=== PATIENT | male | born 1940 | race Caucasian/White ===

== ENCOUNTER → 2021-10-23 | Outpatient (CLI) | payer MEDICARE | END | disposition home or self-care (01) | LOC: PLD 07:56 → LAB SHORT 07:56 | DX: L57.0 Actinic keratosis (principal) | CPT/HCPCS: 88305 ==

== ENCOUNTER → 2022-02-04 | Outpatient (CLI) | payer MEDICARE | END | disposition home or self-care (01) | LOC: LAB SHORT 13:18 → PLD 13:18 | DX: L57.0 Actinic keratosis (principal); L11.9 Acantholytic disorder, unspecified; L57.8 Other skin changes due to chronic exposure to nonionizing radiation | CPT/HCPCS: 88305 ==

== ENCOUNTER 2022-02-23 15:39 | Emergency (ER) | payer MEDICARE ==
[~2022-02-23] VITALS: Ht 165.1 cm; Wt 69.0 kg
[2022-02-23 16:43] LABS: BASOPHILS ABSOLUTE AUTO 0.02 K/mm3 (0.00-0.23); BASOPHILS PERCENT AUTO 0 % (0-2); EOSINOPHILS ABSOLUTE AUTO 0.07 K/mm3 (0.00-0.68); EOSINOPHILS PERCENT AUTO 1 % (0-6); Hemoglobin 13.3 g/dL (13.5-17.5); IMMATURE GRAN ABSOLUTE AUTO 0.01 K/mm3 (0.00-0.10); IMMATURE GRAN PERCENT AUTO 0 % (0-1); LYMPHOCYTES ABSOLUTE AUTO 1.85 K/mm3 (0.84-5.20); LYMPHOCYTES PERCENT AUTO 26 % (21-46); MONOCYTES ABSOLUTE AUTO 0.57 K/mm3 (0.16-1.47); MONOCYTES PERCENT AUTO 8 % (4-13); Mean Corpuscular HGB 30.9 pg (26.0-34.0); Mean Corpuscular HGB Conc 34.1 g/dL (31.5-36.5); Mean Corpuscular Volume 91 fL (80-100); NEUTROPHILS ABSOLUTE AUTO 4.69 K/mm3 (1.96-9.15); NEUTROPHILS PERCENT AUTO 65 % (41-73); Platelet Count 232 K/mm3 (150-400); RDW Coefficient Variation 12.7 % (11.7-14.2); RDW Standard Deviation 42.5 fL (35.1-46.3); Red Blood Cell Count 4.31 M/mm3 (4.30-5.90); White Blood Cell Count 7.21 K/mm3 (4.00-11.30)
[2022-02-23 17:07] LABS: Albumin, Blood 3.6 g/dL (3.4-5.0); Albumin/Globulin Ratio 1.2 (0.8-1.8); Bilirubin, Total 0.6 mg/dL (0.1-1.0); Bun/Creatinine Ratio 13.9 (12.0-20.0); Calcium, Blood 9.1 mg/dL (8.5-10.1); Creatinine, Blood 1.01 mg/dL (0.60-1.20); Total Protein, Blood 6.6 g/dL (6.4-8.2)
[2022-02-24] MEDS ORDERED: LORA.5 (13:21)
[2022-02-24] MEDS ORDERED: Seroquel Xr50 MG (13:21)
[2022-02-24] MEDS ORDERED: Ativan0.5 MG PO (13:31)
== END 2022-02-23 18:24 | disposition home or self-care (01) ==
LOC: ER 15:39
PROVIDERS: Student in an Organized Health Care Education/Training Program
DX: G30.9 Alzheimer's disease, unspecified (principal); F02.81 Dementia in other diseases classified elsewhere, unspecified severity, with behavioral disturbance
CPT/HCPCS: 80053; 85025

== ENCOUNTER 2022-02-24 13:01 | Emergency (ER) | payer MEDICARE ==
[~2022-02-24] VITALS: Ht 165.1 cm; Wt 68.0 kg
[2022-02-24] MEDS ORDERED: LORA.5 (13:21)
[2022-02-24] MEDS ORDERED: Seroquel Xr50 MG (13:21)
[2022-02-24] MEDS ORDERED: Ativan0.5 MG PO (13:31)
== END 2022-02-24 14:28 | disposition home or self-care (01) ==
LOC: ER 13:01
DX: F03.90 Unspecified dementia, unspecified severity, without behavioral disturbance, psychotic disturbance, mood disturbance, and anxiety (principal); Z79.899 Other long term (current) drug therapy
CPT/HCPCS: A9270

== ENCOUNTER 2022-02-24 18:17 | Inpatient (IN) | payer MEDICARE ==
[~2022-02-24] VITALS: Ht 165.1 cm; Wt 64.3 kg
[~2022-02-24 18:17] MED LIST: Ativan0.5 MG PO; LORA.5; QUET25 PO
[2022-02-26 10:17] LABS: Source, Urine Straight Cath
[2022-02-26 10:21] LABS: Appearance, Urine Clear (Clear); Bilirubin, Urine Neg (Neg); Blood, Urine 1+ (Neg); Color, Urine Yellow (P-Yellow); Glucose Qualitative, Urine Neg (Neg); Ketones, Urine 3+ (Neg); Leukocyte Esterase, Urine Neg (Neg); Nitrite, Urine Neg (Neg); Protein, Urine 1+ (Neg); Specific Gravity, Urine 1.025 (1.003-1.022); Urobilinogen, Urine NORM (Normal)
[2022-02-26 10:40] LABS: White Blood Cells, Urine 0-2 /hpf (0-5)
[2022-02-26 10:42] LABS: Bacteria Mod /hpf; Squamous Epithelial Cells Few /hpf (Few)
[2022-02-26 10:44] LABS: Hyaline Casts 0-2 /lpf (0-2); Mucus Light (0-Heavy)
[2022-02-26] MEDS ORDERED: MELATONIN 5 MG1 EACH PO (10:46)
[2022-02-26] MEDS ORDERED: ASPI81CH PO (10:47)
[2022-02-26] MEDS ORDERED: ATORVASTATIN CA80 M1 PO (10:48)
[2022-02-26] MEDS ORDERED: METF500 PO (10:50)
[2022-02-26] MEDS ORDERED: PANT40 PO (10:51)
[2022-02-26] MEDS ORDERED: QUETIAPINE FUMA25 MG PO (10:52)
[2022-02-26 11:10] LABS: U Amphetamine Screen Not Detected; U Barbituate Screen Not Detected; U Buprenorphine Screen Not Detected; U Cannabinoids Screen Not Detected; U Cocaine Screen Not Detected; U Methadone Screen Not Detected; U Methamphetamine Screen Not Detected; U Opiates Screen Not Detected; U Phencyclidine Screen Not Detected
[2022-02-26 11:11] LABS: U Benzodiazapine Screen DETECTED; U Oxycodone Screen Not Detected; U Propoxyphene Screen Not Detected
[2022-02-26 11:25] LABS: Base Excess Venous 3.5 mmol/L; Bicarbonate Venous 25.7 mmol/L (24.0-30.0); PCO2 Venous 48.4 mmHg (38-42); pH Blood Venous 7.38 (7.34-7.37)
[2022-02-26 11:27] LABS: BASOPHILS ABSOLUTE AUTO 0.02 K/mm3 (0.00-0.23); BASOPHILS PERCENT AUTO 0 % (0-2); EOSINOPHILS ABSOLUTE AUTO 0.13 K/mm3 (0.00-0.68); EOSINOPHILS PERCENT AUTO 2 % (0-6); Hematocrit 47.6 % (37.0-53.0); Hemoglobin 15.7 g/dL (13.5-17.5); IMMATURE GRAN PERCENT AUTO 0 % (0-1); LYMPHOCYTES ABSOLUTE AUTO 2.03 K/mm3 (0.84-5.20); LYMPHOCYTES PERCENT AUTO 31 % (21-46); MONOCYTES ABSOLUTE AUTO 0.62 K/mm3 (0.16-1.47); MONOCYTES PERCENT AUTO 9 % (4-13); Mean Corpuscular HGB 30.5 pg (26.0-34.0); Mean Corpuscular Volume 92 fL (80-100); Mean Platelet Volume 8.2 fL (9.1-12.4); NEUTROPHILS ABSOLUTE AUTO 3.79 K/mm3 (1.96-9.15); NEUTROPHILS PERCENT AUTO 58 % (41-73); Platelet Count 275 K/mm3 (150-400); RDW Coefficient Variation 12.9 % (11.7-14.2); RDW Standard Deviation 43.7 fL (35.1-46.3); Red Blood Cell Count 5.15 M/mm3 (4.30-5.90); White Blood Cell Count 6.59 K/mm3 (4.00-11.30)
[2022-02-26 12:00] LABS: Salicylate <1.7 mg/dL (2.8-20.0)
[2022-02-26 12:10] LABS: Alanine Aminotransfer (ALT/SGP 41 U/L (12-78); Albumin, Blood 4.3 g/dL (3.4-5.0); Albumin/Globulin Ratio 1.3 (0.8-1.8); Alk Phos 69 U/L (50-136); Anion Gap 10 mmol/L (6-16); Aspartate Aminotrans (AST/SGOT 68 U/L (12-37); Blood Urea Nitrogen 11 mg/dL (8-24); Bun/Creatinine Ratio 12.9 (12.0-20.0); CO2, Blood 27 mmol/L (21-32); Calcium, Blood 9.6 mg/dL (8.5-10.1); Chloride, Blood 105 mmol/L (98-108); Creatinine, Blood 0.85 mg/dL (0.60-1.20); Globulin, Blood 3.3 g/dL (2.2-4.0); Glomerular Filtration Rate 86 (60-); Glucose, Blood 174 mg/dL (70-99); Potassium, Blood 4.1 mmol/L (3.5-5.5); Sodium, Blood 142 mmol/L (136-145); Total Protein, Blood 7.6 g/dL (6.4-8.2)
[2022-02-26 12:26] LABS: Acetaminophen, Random <2.0 ug/mL (10.0-30.0)
--- NOTE | 2022-02-26 18:38 | NUR ---
PT ARRIVED TO ROOM 351 VIA GURNEY FROM ED. TRANSFERRED AND SETTLED IN TO BED. VERY CHATTY BUT CAN BE HARD TO UNDERSTAND AND SENTENCES NONSENSICAL. NOT FOLLOWING SIMPLE DIRECTIONS. CAMERA ON. WILL MONITER FOR BEHAVIORS AND AGGRESSION. LAUGHING AND SMILING RIGHT NOW.
[2022-02-26] MEDS ORDERED: LORA.5 PO (21:04)
[2022-02-26] MEDS ORDERED: NITR.4SL SL (21:05)
[2022-02-27 06:30] LABS: Albumin, Blood 3.6 g/dL (3.4-5.0); Bilirubin, Direct 0.2 mg/dL (0.0-0.3); Bilirubin, Indirect 0.6 mg/dL (0.1-0.7); Bilirubin, Total 0.8 mg/dL (0.1-1.0); Globulin, Blood 3.5 g/dL (2.2-4.0); Total Protein, Blood 7.1 g/dL (6.4-8.2)
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
--- NOTE | 2022-02-27 19:24 | NUR ---
SHIFT SUMMARY PT GIVEN SEROQUEL THIS MORNING IN ANTICIPATION OF POSSIBLE MRI BEING COMPLETED. ATE A SMALL AMOUNT OF BREAKFAST AND WAS ABLE TO SAYS HIS NAME AND BIRTHDAY. FELL ASLEEP AND SLEPT HARD TIL APPROX 1500 WHEN HE WOKE UP AND WAS TALKING NONSENSICAL AND FIDDLING WITH LINENS AND BRIEF. STARTED YELLING OUT APPROX 1650 AND ATTEMPTING TO CLIMB OOB. SERAQUEL OFFERED IN APPLESAUCE AND PT SPIT IT OUT. IM ZYPREXA GIVEN. APPROX 30 MINUTES LATER PT RIPPED SUBHASH VEST UP THE MIDDLE AND ATTEMPTED TO GET OOB YELLING AND HITTING AT STAFF ATTEMPTING TO HELP PT. SECURITY CALLED AND WRIST AND ANKLY RESTRAINTS APPLIED DUE TO KICKING AT STAFF WITH CARE WELL. HAS CALMED BUT OCC CONTINUES TO YELL OUT AND UNCOOPERATIVE WITH CARE.
--- NOTE | 2022-02-28 04:08 | NUR ---
SHIFT SUMMARY PATIENT HAD NO ACUTE CHANGES. ALERT TO SELF WITH NON-SENSICAL SPEECH. BEDREST. PIV REMAINS INTACT. 1/2 NS INFUSING AT 75 mL/HR. CBG 137. RESTRAINTS PER ORDER FOR AGITATION, KICKING, FALL RISK. VERBAL HALLUCINATIONS. IM ZYPREXA 10 MG GIVEN FOR AGITATION X ONE. DENIES PAIN, SOB, AND N/V. VSS/AFEBRILE. BED IN CALL LIGHT IN REACH. BED IN LOWEST POSITION AND ALARM ACTIVATED. WILL CONTINUE TO MONITOR UNTIL DAY SHIFT NURSE ASSUMES CARE.
[2022-02-28 05:26] LABS: BASOPHILS ABSOLUTE AUTO 0.02 K/mm3 (0.00-0.23); BASOPHILS PERCENT AUTO 0 % (0-2); EOSINOPHILS ABSOLUTE AUTO 0.18 K/mm3 (0.00-0.68); EOSINOPHILS PERCENT AUTO 3 % (0-6); Hematocrit 44.4 % (37.0-53.0); Hemoglobin 14.7 g/dL (13.5-17.5); IMMATURE GRAN ABSOLUTE AUTO 0.01 K/mm3 (0.00-0.10); IMMATURE GRAN PERCENT AUTO 0 % (0-1); LYMPHOCYTES ABSOLUTE AUTO 1.75 K/mm3 (0.84-5.20); LYMPHOCYTES PERCENT AUTO 28 % (21-46); MONOCYTES ABSOLUTE AUTO 0.53 K/mm3 (0.16-1.47); MONOCYTES PERCENT AUTO 9 % (4-13); Mean Corpuscular HGB 30.4 pg (26.0-34.0); Mean Corpuscular HGB Conc 33.1 g/dL (31.5-36.5); Mean Corpuscular Volume 92 fL (80-100); Mean Platelet Volume 8.2 fL (9.1-12.4); NEUTROPHILS ABSOLUTE AUTO 3.68 K/mm3 (1.96-9.15); NEUTROPHILS PERCENT AUTO 60 % (41-73); Platelet Count 256 K/mm3 (150-400); RDW Coefficient Variation 12.8 % (11.7-14.2); RDW Standard Deviation 43.2 fL (35.1-46.3); Red Blood Cell Count 4.83 M/mm3 (4.30-5.90); White Blood Cell Count 6.17 K/mm3 (4.00-11.30)
[2022-02-28 06:19] LABS: Albumin, Blood 3.4 g/dL (3.4-5.0); Anion Gap 6 mmol/L (6-16); Blood Urea Nitrogen 9 mg/dL (8-24); Bun/Creatinine Ratio 9.7 (12.0-20.0); CO2, Blood 28 mmol/L (21-32); Chloride, Blood 109 mmol/L (98-108); Creatinine, Blood 0.93 mg/dL (0.60-1.20); Glomerular Filtration Rate 81 (60-); Glucose, Blood 139 mg/dL (70-99); Magnesium, Blood 1.8 mg/dL (1.6-2.4); Phosphorus, Blood 3.1 mg/dL (2.5-4.9); Potassium, Blood 3.5 mmol/L (3.5-5.5); Sodium, Blood 143 mmol/L (136-145)
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
--- NOTE | 2022-03-01 04:24 | NUR ---
SHIFT SUMMARY PATIENT HAVING VISUAL AND AUDITORY HALLUCINATIONS T/O SHIFT. ALERT TO SELF AND BEDREST. COMBATIVE WITH CARE, REPOSITIONING, AND ATTENDS CHANGES. PATIENT TRYING TO KICK STAFF AND HIT EVEN IN RESTRAINTS. PIV REMAINS INTACT. 1/2 NS INFUSING AT 75mL/HR. DENIES PAIN, SOB, AND N/V. CALL LIGHT IN REACH. BED IN LOWEST POSITION. WILL CONTINUE TO MONITOR UNTIL DAY SHIFT NURSE ASSUMES CARE.
[2022-03-01 05:19] LABS: BASOPHILS ABSOLUTE AUTO 0.01 K/mm3 (0.00-0.23); BASOPHILS PERCENT AUTO 0 % (0-2); EOSINOPHILS ABSOLUTE AUTO 0.17 K/mm3 (0.00-0.68); EOSINOPHILS PERCENT AUTO 3 % (0-6); Hematocrit 45.5 % (37.0-53.0); Hemoglobin 15.3 g/dL (13.5-17.5); IMMATURE GRAN ABSOLUTE AUTO 0.01 K/mm3 (0.00-0.10); IMMATURE GRAN PERCENT AUTO 0 % (0-1); LYMPHOCYTES ABSOLUTE AUTO 1.82 K/mm3 (0.84-5.20); LYMPHOCYTES PERCENT AUTO 27 % (21-46); MONOCYTES ABSOLUTE AUTO 0.54 K/mm3 (0.16-1.47); MONOCYTES PERCENT AUTO 8 % (4-13); Mean Corpuscular HGB 30.6 pg (26.0-34.0); Mean Corpuscular HGB Conc 33.6 g/dL (31.5-36.5); Mean Corpuscular Volume 91 fL (80-100); Mean Platelet Volume 8.4 fL (9.1-12.4); NEUTROPHILS ABSOLUTE AUTO 4.29 K/mm3 (1.96-9.15); NEUTROPHILS PERCENT AUTO 63 % (41-73); Platelet Count 265 K/mm3 (150-400); RDW Coefficient Variation 12.6 % (11.7-14.2); RDW Standard Deviation 42.2 fL (35.1-46.3); White Blood Cell Count 6.84 K/mm3 (4.00-11.30)
[2022-03-01 05:52] LABS: Albumin, Blood 3.7 g/dL (3.4-5.0); Bilirubin, Total 0.7 mg/dL (0.1-1.0); Bun/Creatinine Ratio 9.8 (12.0-20.0); Calcium, Blood 9.3 mg/dL (8.5-10.1); Creatinine, Blood 0.82 mg/dL (0.60-1.20); Globulin, Blood 3.7 g/dL (2.2-4.0); Potassium, Blood 3.6 mmol/L (3.5-5.5); Total Protein, Blood 7.4 g/dL (6.4-8.2)
--- NOTE | 2022-03-01 17:10 | NUR ---
SHIFT SUMMARY MR ALEXANDRE IS ABLE TO TELL ME HIS NAME BUT HAS BEEN VERY CONFUSED TODAY, TALKING A LOT, RAMBLING CONVERSATION THAT MAKES LITTLE SENSE. SOFT RESTRAINTS ON WRISTS AND ANKLES, SUBHASH RESTRAINT IN PLACE PT IS CONSTANTLY MOVING, PULLING HIMSELF DOWN IN BED, WHEN RESTRAINTS ARE REMOVED FOR TURNS AND CARE PT IS REACHING OUT FOR STAFF AND PULLING AT IV LINE AND CLOTHING. FREQUENT CHANGES IN POSITION, SKIN CARE. INCONT OF URINE, ATTENDS IN PLACE. GIVEN MOM AND DUCOLOX SUPPOSITORY TODAY BUT NO BM YET. BLADDER SCAN DONE AT 128CC. IVF STOPPED, PT ATE ALL OF HIS LUNCH. HE TOOK MEDS CRUSHED IN ONE SPOON OF APPLESAUCE THIS AM. BED LOW, CALL LIGHT IN REACH, BED ALARM ON.
--- NOTE | 2022-03-01 18:32 | NUR ---
ADDENDUM PT BECAME AGGITATED, THREATENING STAFF VERBALLY AND TRYING TO PUNCH AND KICK STAFF. ZYPREXA GIVEN. PT AWAKE, CALMER, STILL MUMBLING PRETTY CONSISTANTLY BUT A LOT CALMER AT THE MOMENT. ORDER RECEIVED FROM DR AMOS TO CONTINUE RESTRAINTS.
--- NOTE | 2022-03-02 07:38 | NUR ---
PATIENT VERY AGITATION OVER THE FIRST FEW HOURS OF BRAKE DRUM MOLDER. DAY SHIFT RN GAVE 10MG DOSE OF ZYPREXA AT 1810. AT 2029, PATIENT STILL AGGRESSIVE WITH STAFF ATTEMPTING TO CHANGE HIS BRIEF AND PERFORM SAFETY ADL'S FOR THE PATIENT WHO IS IN 4 POINT SOFT RESTRAINTS, A SUBHASH VEST AND 4 BEDRAILS. HE WOULD NOT ALLOW BRIEF RELEASE OF RESTRAINTS OR ATTEMPTS AT REPOSITIONING OR EVEN TAKING WATER. PUTTY AND PATCH WORKER INFORMED, AND 2ND DOSE OF ZYPREXA GIVEN PER ORDER. AFTER A PPROXIMATELY AN HOUR, Addis BEGAN TO RELAX AND WAS WILLING TO TAKE HIS HS MEDS CRUSHED IN APPLESAUCE. THIS INCLUDED A NEW 200MG DOSE OF SEROQUEL. PATIENT DID CONTININUE TO RELAX, AND ACTUALLY ONLY FOUGHT STAFF WHEN HIS BRIEF WAS CHANGED AGAIN AT MIDNIGHT. BEGINNING AROUND THE 0200 CHECK, PATIENT WAS SLEEPING COMFORTABLY AND ONLY "GRUNTED" AT US WHEN WE COMPLETED OUR 0200 ROUND. THEN AT 0530 , THREE STAFF WENT IN TO CHANGE HIM, AND HE WAS BARELY AWAKE. HE HAD MANAGED TO GET THE COVERS TO ONE SIDE OF THE BED, AND FELT CHILLY. TEMP WNL WERE ALL OF HIS AM VITALS. HOWEVER, THIS RN HAD TO STERNAL RUB HIM QUITE VIGOROUSLY TO GET A SOUND OUT OF HIM, AND COLD WASHCLOTHES WOKE HIM ENOUGH TO MUMBLE "NO" AND SHAKE HIS HEAD. PUTTY AND PATCH WORKER INFORMED OF PATIENTS SOMNOLENCE, AND MEDICATIONS GIVEN LAST NIGHT. 2 LITERS 02 VIA NC PLACED FOR PATIENT SAFETY ALTHOUGH 02 SAT WAS 92% ON RA JUST A FEW MINUTES EARLIER. ONCOMING RN APPRAISED OF THE SITUATION, AND AGAIN, PATIENT TRIED TO SWAT AT THE DAMP WASH CLOTHES BEFORE FALLING BACK TO SLEEP.
--- NOTE | 2022-03-02 10:11 | NUR ---
MR ALEXANDRE IS HARD TO WAKE UP TODAY. HE RESPONDS WITH STERNAL RUB AND LOUD VOICE BY GROANING AND SLIGHTLY OPENING HIS EYES, BUT THAT'S THE MOST RESPONSE FROM HIM THROUGH THIS SHIFT. BP LOW, RECHECKED AND SBP 99. DR AMOS CALLED AND NOTIFIED THAT PT IS THIS DROWSY AND HARDLY RESPONSIVE.
--- NOTE | 2022-03-02 11:46 | NUR ---
PT STILL SLEEPY. 4 PT SOFT RESTRAINTS REMOVED PT SLEEPING. SUBHASH LEFT ON TO REASSESS ONCE PT WAKES UP PER DR PRETTY. PT HAS URINATED, INCONTINENT. BLADDER SCAN 145 POST VOID.
--- NOTE | 2022-03-02 17:32 | NUR ---
SHIFT SUMMARY MR ALEXANDRE WAS VERY SLEEPY AND DIFFICULT TO AROUSE WITHOUT PHYSICAL STIMULI EARLIER THIS SHIFT. 4 PT SOFT RESTRAINTS WERE REMOVED, LEFT WITH SUBHASH RESTRAINT AND 4 SIDE RAILS UP. HE HAD A BM AND WOKE DURING BEDBATH EARLY AFTERNOON, AT THIS TIME HE WAS SHOUTING OUT, TRYING TO HIT AND KICK STAFF, CURSING. HE DID CALM WITHOUT ANY ADDITIONAL MEDICATIONS OR RESTRAINTS AND SLEPT AGAIN THIS AFTERNOON. HIS CAME TO VISIT. NO C/O PAIN, NO RESP DISTRESS. BED LOW, CALL LIGHT IN REACH, BED ALARM ON.
--- NOTE | 2022-03-03 04:58 | NUR ---
PATIENT STARTED OUT QUIET HE HAD BEEN ALL DAY, THEN WOKE ABRUPTLY BEFORE MIDNIGHT AND STARTED YELLING FOR HIS EDMAR. HE BEGAN SWINGING HIS ARMS AT THIS RN AND INSISTING I RELEASE HIM FROM THE VEST. WHEN THE SITUATION WAS EXPLAINED, PATIENT GREW MORE AGITATED, AND STATED "I COULD HIT YOU ANYTIME" WHILE WE WERE CHANGING HIS BRIEF AND REPOSITIONING HIM. ORDER FOR WRIST RESTRAINTS TO BE REPLACED RECEIVED FROM NIGHT HOSPITALIST. PATIENT CALMED FOR A WHILE AFTER THAT AND AGREED TO TAKE HIS BEDTIME MEDS TO WHICH TYLENOL WAS ADDED FOR SOME MODERATE (FACES SCALE) LOW BACK PAIN. HE ATE A WHOLE JELLO AND PUDDING. HE SLEPT FOR 1-2 HOURS, THEN WOKE AGAIN AND STAYED AWAKE FIDGETING OR YELLING AND SWEARING FROM HIS ROOM
--- NOTE | 2022-03-03 15:10 | NUR ---
MR ALEXANDRE HAS BEEN PLEASANTLY CONFUSED THIS SHIFT. HE IS ABLE TO TELL ME HIS NAME, DOES MUMBLE AND TALK WHICH IS DIFFICULT TO UNDERSTAND CONFUSED CONVERSATION. HE HAS NOT YELLED, NOR KICKED OR HIT AT STAFF. HE IS STILL IN SUBHASH RESTRAINT WITH 4 SIDE RAILS UP HE DOES STILL TRY TO GET OUT OF BED AND CAN MOVE WELL EVEN WITH THESE IN PLACE. HE HAS HAD POOR ORAL INTAKE, ENCOURAGED TO DRINK AND LIKED THICKENED OJ. ENCOURAGED TO SIP REGULARLY. BLADDER SCAN 168MLS. BED LOW, CALL LIGHT IN REACH, BED ALARM ON
--- NOTE | 2022-03-03 18:01 | NUR ---
SHIFT SUMMARY MR ALEXANDRE HAS BEEN PLEASANTLY CONFUSED TODAY. NO YELLING, KICKING OR HITTING. HE DID GET A LITTLE AGGITATED AFTER HIS 'S VISIT, BUT WAS ABLE TO BE REDIRECTED AND CALMED. HE HAS BEEN IN THE SUBHASH RESTRAINT WITH 4 SIDE RAILS UP AND HAS TRIED TO GET OUT OF BED SEVERAL TIMES. ORAL INTAKE BEING ENCOURAGED. GRAPHITE PAN DRIER TENDER REPORTS THAT HE CHOKED DURING LUNCH AND TRAY WAS REMOVED, BUT HE HAS TAKEN THICKENED OJ SINCE THEN WITHOUT CHOKING. DIET CHANGED TO PUREE BY . BED LOW, CALL LIGHT IN REACH. BED ALARM ON
--- NOTE | 2022-03-04 05:05 | NUR ---
JUST AFTER EVENING BEGAN, PATIENT BED ALARM WENT OFF AND ADDIS WAS FOUND TO HAVE PULLED SUBHASH VEST OVER HIS HEAD, REMOVED HIS PAJAMA BOTTOMS AND HAD BOTH FEET ON THE FLOOR HOLDING ONTO THE BEDRAIL. Addis WAS VERY SHAKEY AND UNSTEADY ON HIS FEET. QUICKLY SEVERAL NURSES AND PRESIDENT [place] ASSISTED PATIENT BACK INTO BED, REPLACED THE SUHBASH VEST. MD WAS CONTACTED AND NEW ORDER FOR 4 RAILS, SUBHASH VEST AND REPLACEMENT OF BILATERAL SOFT WRIST RESTRAINTS. HOSPITALIST STATED HE COULD HAVE A 5MG DOSE OF IM ZYPREXA ONCE FOR SEVERE AGITATION AND ANXIETY. MEDICATION WAS GIVEN WITH MEDS WITH GOOD RESULT. PATIENT ACTUALLY SLEPT INTERMITTANTLY THROUGHOUT THE SHIFT. NO COMPLAINTS OF DISCOMFORT NOTED.
--- NOTE | 2022-03-04 18:30 | NUR ---
SHIFT SUMMARY PT HAS BEEN AGITATED AND INTERMITTENTLY AGGRESSIVE TODAY. HE IS IN TUFFCUFFS BECAUSE HE CAN RIP THE WOFT RESTRAINTS OFF BY TUGGING. HE IS IN 4 POINTS BECAUSE HWEN HE NEEDS TO BE CHANGES HHE KICKS STAFF AND SQUEEZED THIGH TOGETHER TO PREVENT CHANGING. CONDOM CATH IN PLACE TO PREVENT SKIN BREAKDOWN AND AVOID STAFF INJURY. PT EATS MEALS WELL, BUT CAN BE NON COMPLIANT WITH ORAL MEDICATIONS. WAS UPDATED BY RN. BED IN LOWEST POSITIONS, RESTRAINTS CHECKED.
--- NOTE | 2022-03-05 06:36 | NUR ---
SHIFT SUMMARY PATIENT ALERT AND ORIENTED TO SELF. REMAINS IN RESTRAINS DUE TO PATIENT COMBATIVENESS. NO ACUTE ISSUES NOTED OVERNIGHT. CALL LIGHT WITHIN REACH. REPORT GIVEN TO ONCOMING RN.
--- NOTE | 2022-03-05 15:47 | NUR ---
SHIFT SUMMARY PATIENT HAS SLEPT MOST OF THE MORNING. PATIENT HAS BEEN OFF AND ON AGITATED AFTER 1200. GIVEN PRN SERAQUIL. PATIENT HAS BEEN COMPLIANT WITH BRIEF CHANGES IN THE MORNING WHILE CALM. PATIENT IS IN 4 POINT RESTRAINTS DUE TO SAFETY FOR STAFF AND LINES. PATIENT HAS BEEN COMPLIANT WITH MEDICATIONS CRUSHED IN APPLESAUCE. RESTRAINTS AND COMFORT CHECKED Q2. BED IN LOCKED AND LOWEST POSITION. CALL LIGHT IN PLACE. WILL MONITOR UNTIL SHIFT CHANGE.
--- NOTE | 2022-03-06 05:22 | NUR ---
CHIEF OPERATOR LOCK TENDER SUMMARY ADMITTED FOR AGGRESSION AND THREATENING OF OTHERS. PT IS A DNR. HE IS FROM [facility]. NO CURRENT DC PLAN. HE WAS PLEASANTLY CONFUSED AT THE START OF SHIFT, BECOMING AGITATED THIS MORNING. PT HAS BEEN RESTRAINED THROUGHOUT THE SHIFT WITH 4 EXTREMITIES, SUBHASH, AND 4 RAILS DUE TO CONFUSION AND STAFF/PATIENT SAFETY. HE BEGAN TO CUSS AT STAFF WITH A HARSH TONE AND PULL ON RESTRAINTS SO WAS MEDICATED WITH 10MG IM ZYPREXA THIS AM - CURRENTLY SLEEPING. HE REQUIRES 2P CARE.
--- NOTE | 2022-03-06 17:01 | NUR ---
SHIFT SUMMARY PATIENT IS ALERT AND ORIENTATED TO SELF. PATIENT HAS BEEN PLEASENT THIS SHIFT. PATIENT HAS BEEN IN RESTRAINTS FOR SAFETY TO STAFF AND SELF. PATIENTS VISITED FOR AWHILE. PATIENTS MEDICATIONS WERE LATE DUE TO PATIENT SLEEPING MOST OF MORNING. NO ACUTE EVENTS THIS SHIFT. VITAL SIGNS REVIEWED. BED IN LOCKED AND LOWEST POSITION. CALL LIGHT IN PLACE. WILL MONITOR UNTIL SHIFT CHANGE.
--- NOTE | 2022-03-07 05:07 | NUR ---
PT ALER TO SELF. PT KEPT ON RESTRAINTS. PER REPORT PT WAS TRIALED BRIEFLY W/O ANKLE RESTRAINTS HOWEVER BECAME AGITATED AND WAS NOT RANDI TO BE W/O. PT INTERMITENTLY DOZING OFF HOWEVER WHEN AWAKE PULLING AT HIS RESTRAINTS. WHEN PROVIDING PERSONAL CARE PT IS NOT IN AGREEMENT AND NEEDS TO BE KEPT ON RESTRAINTS WHEN TURNING. PT IS INCONTINENT OF BOTH URINE AND STOOL. HEELS NOTED TO BE RED AND HEEL BOOTS APPLIED AND ELEVATED WITH PILLOW HOWEVER PT CONSTANTLY TAKES THEM OFF.
--- NOTE | 2022-03-07 18:20 | NUR ---
SHIFT SUMMARY: INTERMITTENTLY ALERT TO SELF, RECOGNIZED FAMILY WHEN THEY VISITED. WAS COOPERATIVE THIS MORNING SO RESTRAINTS DOWNGRADED TO SUBHASH VEST AND 4 SIDE RAILS ONLY WITH CONTINUOUS REMOTE MONITORING. SPEECH IS NONSENSICAL AND GARBLED. HAS EYES CLOSED MOST OF THE TIME, WILL REACH OUT THOUGH SEEING THINGS. TRIED TO GET PT OOB TO CHAIR, BUT HE WAS SO WEAK THAT HE COULD NOT STAND; PHYSICAL THERAPY ORDERED, BUT UNSURE IF PT WILL BE ABLE TO FOLLOW DIRECTIONS FOR EVAL. NO VIOLENT BEHAVIORS THIS SHIFT. TOLERATING PUREE DIET BUT DOES NOT LIKE TEXTURE, FED HIMSELF A LITTLE DURING LUNCH BUT USUALLY HAS TO BE FED. PRN SEROQUEL GIVEN ONCE. INCONTINENT OF B&B. ATTENDS IN PLACE.
--- NOTE | 2022-03-08 05:43 | NUR ---
SHIFT SUMMARY: PT IS ALERT AND CONFUSED WITH HALLUCINATIONS AND NON-SENSICAL SPEECH. PT IS IMPULSIVE, REMAINED IN A SUBHASH OVERNIGHT. PT INCONTINENT, CHANGED AND CLEANED NEEDED. PT DID EVENTUALLY FALL ASLEEP LATER IN THE NIGHT. PT SHOWS NO S/S FOR PAIN, NAUSEA, VOMITING, OR SOB. AWAITING PLACEMENT VS HOME WITH . NO ACUTE CHANGES OR COMPLICATIONS OVERNIGHT. BED IN LOW POSITION, CALL LIGHT WITHIN REACH, WILL REPORT TO DAY NURSE.
[2022-03-08 15:01] LABS: Influenza A, PCR NEGATIVE (NEGATIVE); Influenza B, PCR NEGATIVE (NEGATIVE); Resp Syncytial Virus, PCR NEGATIVE (NEGATIVE); SARS-Cov-2 (COVID-19) PCR, MMC NEGATIVE (NEGATIVE)
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
--- NOTE | 2022-03-08 21:50 | NUR ---
AT 2130, PATIENT BEGAN CRAWLING OOB. WHEN NURSING STAFF ATTEMPTED TO GET HIM BACK FULLY INTO THE BED, HE STARTED YELLING AND KICKING AT STAFF AND THROWING BACK HIS ARMS IN A FIST IN ATTEMPTS TO STRIKE THE STAFF MEMBERS ATTEMPTING TO ASSIST. [facility] RN NOTIFIED AND CAME TO ASSIST STAFF IN TRYING TO CALM PATIENT AND KEEP HIM SAFE HE WAS NOW KICKING AND HITTING THE RAILS WITH HIS ARMS AND HEAD. THIS RN ADMINISTERED 5MG ZYPREXA IM PER ORDER AND SUBHASH VEST APPLIED WITH THE ASSIST OF 3 OTHER STAFF MEMBERS. ALL 4 RAILS UP AND PATIENT IS BEING OBSERVED ON CAMERA FOR ADDITIONAL SAFETY. WILL UPDATE MD ON CURRENT SITUATION.
[2022-03-09 05:40] LABS: BASOPHILS ABSOLUTE AUTO 0.03 K/mm3 (0.00-0.23); BASOPHILS PERCENT AUTO 1 % (0-2); EOSINOPHILS ABSOLUTE AUTO 0.22 K/mm3 (0.00-0.68); EOSINOPHILS PERCENT AUTO 3 % (0-6); Hematocrit 46.5 % (37.0-53.0); Hemoglobin 15.4 g/dL (13.5-17.5); IMMATURE GRAN ABSOLUTE AUTO 0.02 K/mm3 (0.00-0.10); IMMATURE GRAN PERCENT AUTO 0 % (0-1); LYMPHOCYTES ABSOLUTE AUTO 2.61 K/mm3 (0.84-5.20); LYMPHOCYTES PERCENT AUTO 40 % (21-46); MONOCYTES ABSOLUTE AUTO 0.61 K/mm3 (0.16-1.47); MONOCYTES PERCENT AUTO 9 % (4-13); Mean Corpuscular HGB 30.3 pg (26.0-34.0); Mean Corpuscular HGB Conc 33.1 g/dL (31.5-36.5); Mean Corpuscular Volume 92 fL (80-100); Mean Platelet Volume 8.5 fL (9.1-12.4); NEUTROPHILS ABSOLUTE AUTO 2.98 K/mm3 (1.96-9.15); NEUTROPHILS PERCENT AUTO 46 % (41-73); Platelet Count 326 K/mm3 (150-400); RDW Coefficient Variation 12.4 % (11.7-14.2); RDW Standard Deviation 42.2 fL (35.1-46.3); Red Blood Cell Count 5.08 M/mm3 (4.30-5.90); White Blood Cell Count 6.47 K/mm3 (4.00-11.30)
[2022-03-09 06:15] LABS: Albumin, Blood 3.4 g/dL (3.4-5.0); Albumin/Globulin Ratio 0.9 (0.8-1.8); Bilirubin, Total 0.6 mg/dL (0.1-1.0); Bun/Creatinine Ratio 16.8 (12.0-20.0); Calcium, Blood 9.5 mg/dL (8.5-10.1); Creatinine, Blood 1.19 mg/dL (0.60-1.20); Globulin, Blood 3.8 g/dL (2.2-4.0); Potassium, Blood 4.4 mmol/L (3.5-5.5); Total Protein, Blood 7.2 g/dL (6.4-8.2)
--- NOTE | 2022-03-09 07:51 | NUR ---
ROSY'S EVENING STARTED OUT VERY QUIETLY WITH HIM TAKING ALL OF HIS EVENING MEDS, AND ALLOWING THIS NURSE TO EVEN DO AN ASSESSMENT. AT AROUND 2130, PATIENT STARTED YELLING AND CURSING, AND WHEN STAFF WENT INTO THE ROOM, PATIENT STARTED SWINGING HIS ARMS AT THE STAFF AND KICKING UP HIS LEGS. THE AUTO APPRAISER ON THE UNIT WHO HAS A GOOD RELATIONSHIP WITH ROSY EVEN SAT DOWN WITH HIM FOR SEVERAL MINUTES TO TRY TO DE ESCALATE HIM, BUT TO NO AVAIL. WAS NOTIFIED AND ORDER RECEIVED FOR A SUBHASH VEST AND 4 RAILS. 5MG IM ZYPREXA WAS GIVEN PER EMAR ORDER, AND PATIENT STILL FOUGHT SLEEP OR RELAXING FOR SEVERAL MORE HOURS. fINALLY AROUND 0100, HE BEGAN TO RELAX AND FELL ASLEEP FOR THE REST OF THE SHIFT.
--- NOTE | 2022-03-09 18:51 | NUR ---
SHIFT SUMMARY PT SLEPT MAJORITY OF THE DAY, AROUSABLE YET UNABLE TO REMAIN AWAKE. AFTER LUNCH HE AWOKE AND ATE HIS WARMED UP LUNCH PLUS SNACKS. HE BECAME MORE AWAKE HE BECAME MORE AGITATED, THRASHING IN BED, PULLING ON VEST RESTRAINT & YELLING OUT. CONFUSED, HALLUCINATING AND UNORIENTABLE. MEDICATED WITH ZYPREXA AND SEROQUEL PER MD ORDER. HE SEEMED TO BECOME MORE CALM AT END OF SHIFT.
--- NOTE | 2022-03-10 04:40 | NUR ---
ROSY WAS AWAKE ALMOST THE ENTIRE NIGHT. MOVING ABOUT THE BED, PUSHING ON THE BEDRAILS WITH HIS HANDS AND FEET, PULLING ON THE SUBHASH VEST TIES AND HAVING VISUAL WELL AUDIO HALLUCINATINS AND EITHER TALKING, OR RARELY YELLING AT WHOMEVER HE THOUGHT WAS ADDRESSING. ROSY WAS GIVEN AN EXTRA DOSE OF SEROQUEL WELL A DOSE OF ZYPREXA SHORTLY BEFORE THE SHIFT, PRN DOSE OF ZYPREXA USUALLY ADMINISTERED JUST AFTER HS WHEN HE WOULD GET COMBATIVE WAS HELD. ROSY WAS AWAKE AND "BUSY" ALL NIGHT, BUT HE NEVER DID GET COMBATIVE OR AGITATED. NO SIGN OR PAIN OR DISCOMFORT NOTED OVERNIGHT.
--- NOTE | 2022-03-10 18:26 | NUR ---
SHIFT SUMMARY ROSY HAS SLEPT OFF & ON THROUGHOUT THE SHIFT. IMMEDIATELY UPON AWAKING WOULD MEDICATE WITH PRN SEROQUEL FOR ESCALATING AGITATION THE LONGER HE WAS AWAKE. HE WAS ABLE TO TAKE MORNING MEDS WITH PUDDING LATER IN THE MORNING AND WAS ABLE TO EAT LUNCH & DRINK WATER. WHEN HE IS AWAKE EVEN WITH THE SEROQUEL HE IS YELLING OUT, APPEARS TO BE HAVING VISUAL & AUDITORY HALLUCINATIONS, YELLING & TALKING TO & SEEING PEOPLE WHO ARE NOT THERE. UNABLE TO RE-ORIENT HIM AND HE DOES NOT EASILY FOLLOW COMMANDS. HE HAS NOT BEEN COMBATIVE OR AGGRESSIVE. HE HAS ACTUALLY BEEN PLEASANT EVEN WITH HIS BUSY CONFUSION. PLAN IS FOR SNF/MEMORY CARE PLACEMENT ONCE ACCEPTED UPON HOSPITAL DC.
--- NOTE | 2022-03-10 22:35 | NUR ---
PATIENT LAYING IN BED HAVING QUIET CONVERSATION WITH PEOPLE WHOM HE BELIEVES ARE IN THE ROOM WITH HIM. STILL PULLING ON RESTRAINTS, AND TRYING TO PUSH THE RAILS DOWN AND PUTTING HIS LEGS OVER THEM IN ATTEMPT TO GET OOB. NO SIGNS OF AGGRESSIVE BEHAVIOR, JUST UNABLE TO GET PATIENTS ATTENTION OR TO SUCCESSFULLY REDIRECT HIS CONTINUED ATTEMPTS TO GET OOB. EDMAR WAS IN AND WAS HAPPY TO SEE THAT HIS MENTATION SEEMS TO BE BACK AT HIS BASELINE. MELATONIN 6MG GIVEN AFTER ORDER WAS GIVEN TO RESTART THIS HOME HS MED. WILL CONTINUE CLOSE OBSERVATION
--- NOTE | 2022-03-11 06:43 | NUR ---
ROSY HAD A GREAT NIGHT LAST NIGHT. HE REQUIRED NO ZYPREXA FOR AGRESSION, HE SLEPT THROUGH THE NIGHT AFTER RESTARTING HIS MELATONIN WHICH IS A REGULAR HOME MEDICATION. HE DID GET AGITATED FOR APPROXIMATELY 1-2 MINUTES WHEN STAFF WOKE HIM UP AROUND MIDNIGHT TO DO KIRK CARE AND CHANGE HIS LINENS AFTER AN INCONTINENCE. HE FELL RIGHT BACK TO SLEEP, AND WAS NOT AT ALL COMBATIVE OR AGITATED IN THE AM WHEN THE STAFF HAD TO AGAIN WAKE HIM FOR THE SAME. NO SIGNS OF PAIN OR DISCOMFORT OVERNIGHT. PATIENT IS STILL IN SUBHASH VEST AND 4 RAILS HE WOULD WAKE AND TRY TO THROW HIS ARMS AND LEGS OVER AND THROUGH THE RAILS
--- NOTE | 2022-03-11 18:33 | NUR ---
Patient sleeping comfortably this morning, awake late morning. When patient awoke he has restless in bed, trying to crawl out of bed, wrapping bedding around limbs and bed rails. Removed items from patient reach to keep safe. Tried repositioning, offering food/water, diversional activties, patient unable to be distracted. He pulled the mary vest over his head, called MD and new order for 4-point soft restraints. Patient in bed kicking, combatative, admisntired IM Zyprexa, PRN seems affective, patient still restless but is not yelling and thrashing in bed. Vitals stable.
--- NOTE | 2022-03-12 05:49 | NUR ---
SHIFT SUMMARY 81 YR M ADMITTED SINCE 02/27/22 AND AWAITING PLACEMENT IT IS NOT SAFE TO DISCHARGE HIM TO HOME. DNR. PT WAS VERY RESTLESS THIS SHIFT AND BECAME AGITATED AND WAS SCREAMING AND YELLING INCOHERANTLY. HE WAS COMBATIVE W/ STAFF AND WAS MEDICATED TWICE W/ ZYPREXA PER EMAR. HE WAS AGGRESSIVELY PULLING AT SOFT WRIST RESTAINTS AND WAS GETTING THEM LOOSE SO THEY WERE SWITCHED OUT TO LOCKING WRIST RESTRAINTS FOR THE SAFETY OF THE PT AND STAFF. HE DID SLEEP FOR A FEW HOURS BUT SOON HE WAKES UP HIS BEHAVIOR BECOMES AGGRESSIVE.
--- NOTE | 2022-03-12 15:58 | NUR ---
On arrival for dayshift, patient Awake/alert, oriented to self. Hard restraints applied to bilateral wrists, soft restraints applied to bilateral ankles. 0700 Removed hard restraints from wrists, patient restless, agitated, unable to keep patient safe, applied mary vest & soft restraints to bilateral ankles. Staff in room assisting pt with breakfast. Patient feel asleep, appeared to be sleeping comfortably, could visibily see chest/rise & fall. Called MD and Restraint ordered updated. 0900 removed soft restraints from feet, vest in place. Called MD, and restraint ordered updated. MD at bedside assessing patient. Psychiatrist called for update on patient status, reported that patient was awake all night, combatitive/agitated despite PRN Zyprexa given twice. MD changed Serquel HS dosage. Patient sleeping all day, awake at 1430, kicking feet, trying to slide out of bed, unable to redirect. Therapy attempted to work with patient. 1500 Called MD, new order for restraints soft bilateral ankles/ mary vest in place.
--- NOTE | 2022-03-12 17:40 | NUR ---
Called by nurse to see pt for worsening aggitation. at bedside review of pt history. 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 Pt has had many many traumatic injuries to his head high falls and headinjuries. He has had a knuckle rplacement. he had had hernia surgies theat wer so obstructive he could not void. He now has stress feels he has to void quickly. 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 She does not know if he has balance issues but multiple falls. Aske if he startis or get more aggitated if people approach him. she stated yes may be because of vision. Review of history maybe some hyper activity. She states many years ago he had very high alcohol use. She states they reeled it in. Still some dirnking but not intense may be some withdrawls. She is showing significant caregiver stress. Wants to take him home permant placement would be devestating to them financially. Gave her stategies of making home some and removing and containg him. pt was moving his fee in the bed like peddaling a bike. She tried to calm him. Advised her to stop and let him fidget he needs to be moving. some of his movment snd muscle tightness may be pain. Revieww with nursing stategies of care and medication. state ana maria now weras lots of clothing and is always cold and achey. pland is use seroquel avoid zyprexa so we can see which drug works. stop at door and announce yourself give him time to acclimate and focus so we dont strartle him. Give him a tylenol and some warm blankets. Assess boyley if he fidgets let hiem versus grabbling or hitting. Will review medication with physicians. will see if possibly neurontin might be a viable pain medications. Suggest if we can get him medicated properly dischareg home with hospice care.
--- NOTE | 2022-03-12 18:02 | NUR ---
Pallilative consulted & spoke to patient & . The told pallilative care that the patient has a hx of TBI, high level falls, poor left eyesight, he has always been active, and can't stay still. Patient has been observed to be fidgiting in bed, with his hands he is trying to grabs stuff and twists things in his hands. Patient has been reporting urinary urgency but not able to void in urinal. Scanned bladder, 0mL noted. Gave Seroquel this afternoon, patient doing much better, still active/fidgiting but not agitated or trying to climb out of bed. [facility] psych called RN reported that the facility MD recommends memory care, & pt denied placement. 1800 removed soft ankles restraints, mary vest in place. Restraint order updated.
--- NOTE | 2022-03-13 00:21 | NUR ---
NON COMPLIANT WITH SAFETY, REFUESES TO REDIRECT. REFUSED NEURO CHECKS. NOTE CAN FEEL ALL 4 EXT DUE TO POSITIVE BABINSKIS AND SUCH. WILL CONTINUE TO ASSESS AND CHECK PER RESTRAINT PROTOCOL.
--- NOTE | 2022-03-13 03:45 | NUR ---
APPLICATION DESIGNER SUMMARY INTERMITTENT YELLING, SCREAMING AND ATTEMPTS TO CLIMB OUT OF BED. HIGH FALL RISK AND DOES NOT REDIRECT. AGITATION INCREASED. SUBHASH VEST WHICH WAS INITIATED ON DAY SHIFT WAS INCREASED TO INCLUDE SOFT RESTRAINTS X 4 EXT DUE TO INCREASED AGITATION AND REFUSAL TO REMAIN SAFE. ANTI AGITATION MEDS GIVEN, AND LESS AGITATED AT THIS TIME BUT REMAINS HIGH FALL RISK AND NOT REDIRECTABLE. CALL LIGHT NEAR. ON CAMERA FOR CONTINUOUS OBSERVATION. INCONT A FEW TIMES AND BED LINEN CHANGED. WILL CONTINUE TO MONITOR.
--- NOTE | 2022-03-13 16:56 | NUR ---
Chart reviewed, assessed pt. He appears relaxed, resting comfortably. After reviewing pt's medications, noted he is taking scheduled seroquel at bedtime only. Consulted with Dr. Tan, he agrees to try both a morning and bedtime scheduled dose. Also spoke to pt's Kristina who mentioned the pt was taking Melatonin nightly at home, and he was sleeping well through the night. She gave it to him between 18 and 1900 nightly, and he would retire to bed on his own at 2100. Received v.o. from Dr. Moyer covering for Dr. Tan now, okay to change melatonin prn to scheduled nightly at 1900.
--- NOTE | 2022-03-13 18:36 | NUR ---
PATIENT CALMER TODAY, SEROQUEL GIVEN Q4-6 HOURS TODAY AND WAS ABLE TO TAKE ANKLE RESTRAINTS OFF. PATIENT IS A FEEDER AND ATE WELL TODAY. SKIN INTACT. VSS, ON. MELATONIN CHANGED TO SCHEDULED FOR THIS EVENING PER PALLIATIVE CARE NURSE. AWAITING PLACEMENT.
--- NOTE | 2022-03-14 04:36 | NUR ---
SHIFT SUMMARY: PATIENT IS CONFUSED AND DIFFICULT TO RE-ORIENT, IMPULSIVE AND DOES NOT FOLLOW DIRECTIONS. VEST AND SOFT WRIST RESTRAINTS ARE IN PLACE. BED ALARM IS ON. POOR PO INTAKE. INC. OF URINE.
--- NOTE | 2022-03-14 05:37 | NUR ---
SHIFT SUMMARY: PATIENT IS A&O TO SELF. UNABLE TO MAKE NEEDS KNOWN. IMPULSIVE, FIDGITY, LEGS ARE ALWAYS MOVING IN THE BED WHEN AWAKE. INC. OF URINE. VEST AND BILAT SOFT WRIST RESTRAINTS AND BED ALARM REMAIN IN PLACE FOR SAFETY.
--- NOTE | 2022-03-14 07:10 | NUR ---
MISSED RESTRAINT CHARTING PT WAS IN FOUR POINTS, SONF BILATE LOWER, TUFF CUFF BILAT WRISTS, VESTS AND FOUR RAILS UP FOR AGGRESSION, HARM TO SEF, AND FALL RISK. PTS SKIN WAS CHECKED AND WATER OFFERED AT 1800. RESTRIANTS REMAINED IN PLACE. PT WAS OBSERVED MUTTERING AND SHOUTING AT STAFF STILL AGITATED.
--- NOTE | 2022-03-14 15:24 | NUR ---
After responding to a request from Palliative Care RN Rachel, I meeting with pt's spouse, Kristina in Rachel's office. She is crying when I Arrive. We discuss her personal struggles with seeing her in restraints and second guessing her every move as she has tried to work on the pt's behalf. Rachel and I are able to bring a calming presence and gentle financial services counselor to releave her concerns. She benefits from prayer and therapeutic listening and voices appreciation for the care. I will continue to remain available to patient and family.
--- NOTE | 2022-03-14 16:35 | NUR ---
ORDER FOR RESTRAINTS RECIEVED 03/14/[address] Abdi BOLTON/Melchor BRISCOE RN SUBHASH VEST, BILAT SOFT WRIST, AND 4 RAILS
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
--- NOTE | 2022-03-14 18:12 | NUR ---
SHIFT SUMMARY NO ACUTE CHANGES DURING SHIFT. PT ALERT TO SELF AT TIMES, PERIODICALLY FOLLOWS COMMANDS, REDIRECTED AT TIMES. DIFFICULT TO UNDERSTAND SPEACH MOST TIMES. PT STILL IMPULSIVE, ATTEMPTING TO GET OUT OF BED. RESTRAINTS STILL IN PLACE TO BUE, SIDERAILS X4, AND VEST. PATIENT PENDING PLACEMENT. PRN SEROQUEL ADMINISTERED X 1
--- NOTE | 2022-03-15 05:48 | NUR ---
SHIFT SUMMARY: PATIENT CONTINUES TO BE ORIENTED TO NAME ONLY. UNABLE TO EXPRESS NEEDS. IMPUSIVE AND ANXIOUS. SCHEDULED PSYCH. MEDS AND PRN SEROQUEL GIVEN X1 WITH FAIR EFFECT.TOLERATING DIET WELL, VSS, NO ACUTE CHANGES IN CONDITION. PATIENT REMAINS IN SOFT WRIST AND SUBHASH RESTRAINTS.
--- NOTE | 2022-03-15 13:38 | NUR ---
Spiritual Care Attempted. Pt. is sleeping with restraints and displaysevidence of restless legs, but doesn't reply to my greeting. Will attempt to visit at another time.
--- NOTE | 2022-03-15 18:22 | NUR ---
SHIFT SUMMARY NO ACUTE CHANGES DURING SHIFT. PT ALERT TO SELF, FOLLOWS SOME SIMPLE COMMANDS. PT REMAINS IN RESTRAINTS, PERIODICALLY ATTEMPTING TO JUMP OUT OF BED, OCCASIONALLY AGITATED. EVENING DOSE OF SEROQUEL INCREASED. WILL CONTINUE TO MONITOR.
--- NOTE | 2022-03-16 05:07 | NUR ---
SHIFT SUMMARY AOX1-NAME ONLY. UNAWARE PLACE, DATE, SITUATION, BIRTHDATE, DIFFICULTY FOLLOWING DIRECTIONS, IMPULSIVE. WAS ABLE TO STICK OUT TONGUE WHEN ASKED OTHERWISE CANT FOLLOW MANY COMMANDS. VSS. ROUGHLY HAD 4 HRS SOUND SLEEP c RESTLESS LEGS KICKING WHILE HES ASLEEP. DENIES PAIN, N/V OR DYSPNEA. DOES GET AGITATED & IRRITABLE @TIMES WHEN STAFF IS CHANGING ATTENDS, INCONT. TAKES MEDS WELL CRUSHED. AWAITING PLACEMENT. CALL LIGHT & BED ALARM IN PLACE.
--- NOTE | 2022-03-16 18:20 | NUR ---
SHIFT SUMMARY NO ACUTE CHANGES DURING SHIFT. PT ALERT TO SELF, FOLLOWS SIMPLE COMMANDS. PT VERY AGITATED FOLLOWING WIFES VISIT. MEDICATED WITH PRN MEDICATIONS WITH MINIMAL CHANGE. PATIENT REMAINS RESTRAINED BILAT WRISTS AND VEST. PT CONTINUES TO SLIDE DOWN IN BED AND ATTEMPT TO CLIMB OVER RAILS. PT PENDING PLACEMENT.
--- NOTE | 2022-03-17 04:59 | NUR ---
SHIFT SUMMARY NO ACUTE CHANGES THIS SHIFT. AOX0, UNABLE TO ANSWER NAME OR FOLLOW DIRECTIONS. HAS NONSENSICAL RESPONSES TO QUESTIONS. HAS SLEPT SOUNDLY. VSS. IMPULSIVE & CONFUSED. DENIES N/V, PAIN OR DYSPNEA. CALL LIGHT & BED ALARM IN PLACE. WILL MONITOR. AWAITING SAFE DC PLAN.
--- NOTE | 2022-03-17 19:28 | NUR ---
SHIFT SUMMARY PT [id number]. PT IN JANE WRIST RESTRAINTS AND SUBHASH VEST. PT DISPLAYED COMBATIVE, AGITATED BEHAVIOR THIS SHIFT. NON SENSICAL SPEECH OR MUMBLING ALL DAY. PT NON REDIRECTABLE. PT'S SON AND DAUGHTER IN LAW IN TODAY. PT ACTED CALM DURING THEIR VISIT. PT NEEDED ONE PRN SEROQUEL IN ADDITION TO SCHEDULED MEDS THIS SHIFT. VITALS REVIEWED. PT IS CURRENTLY RESTING IN BED LISTENING TO MUSIC. APPEARS CALM AT THIS TIME.
--- NOTE | 2022-03-18 04:33 | NUR ---
SHIFT SUMMARY AOX0, UNABLE TO REDIRECT, FOLLOW DIRECTIONS OR ANSWER QUESTIONS APPROPRIATE. VERY AGITATED, YELLING, CURSING, GRABBING, SHAKING BED RAILS, TRYING TO BREAK OUT OF RESTRAINTS & THREATENING TO HIT STAFF @BEGINNING OF SHIFT, EVEN THOUGH DAY NURSE MEDICATED c PRN SEROQUEL. THEREFORE MEDICATED c HS SEROQUEL & MELATONIN. PT ABLE TO SLEEP OKAY ONCE HS MEDS TOOK EFFECT. SLEPT ROUGHLY 1 HR THEN WOKE UP YELLING NONSENSICAL SPEECH FOR MAYBE 30 MIN & FELL BACK ASLEEP FOR 3 HRS OF NOW. VSS. NO S/SX N/V, DYSPNEA OR PAIN. HASNT HAD BM CHARTED SINCE 03/08 MEDICATED c MOM & NO BM YET. CHANGED & REPOSITIONED PRN. AWAITING PLACEMENT. CALL LIGHT & BED ALARM IN PLACE. WILL MONITOR.
--- NOTE | 2022-03-18 12:36 | NUR ---
Pt's Kristina decided over the weekend to take her home on hospice care, which is appropriate. She states she came to the decision through prayer, an online support community, and knowledge of her 's opinions on quality of life. She has chosen [facility] [place], as she is familiar with the company. Passed this along to bedside RN and Systems Architect. Pt is resting without restraints at the moment. His eyes are closed, respirations even and unlabored. No SOB or pain noted at this time. Will continue to follow pt through discharge.
--- NOTE | 2022-03-18 19:25 | NUR ---
SHIFT SUMMARY: PT A/O X 1, BEDREST. PT HAS BEEN AGITATED AT TIMES BUT RE-DIRECTABLE WHEN AWAKE. PT WAS VERY SLEEPY THIS MORNING AND DIFFICULT TO AROUSE UNTIL 1045. AT THAT TIME PT WAS ABLE TO VERBALIZE AND ABLE TO FOLLOW COMMANDS. PT WAS NOT COMBATIVE AND SO RESTRAINTS WERE DISCONTINUED. PT HAD A SNACK SINCE HE MISSED BREAKFAST AND HE ATE YOGURT AND APPLESAUCE AND ENSURE WELL. PT DID NOT GET HIS AM DOSE OF SEROQUEL DUE TO SEDATION. HE WANTED TO GET UP TO USE RESTROOM. HE WAS A 2 MAX ASSIST WITH GB/WALKER PIVOT [place] TO [facility]. HE URINATED PRIOR TO MAKING IT TO DUE TO TIME IT TOOK TO GET HIM READY TO GET OOB. WE WERE ABLE TO CLEAN HIM AND CHANGE HIS ATTENDS. PT THEN WENT BACK TO BED AND FELL ASLEEP UNTIL ABOUT 1844. HE DID GET A BED BATH AND WAS GIVEN A SUPPOSITORY DUE TO NO BM SINCE 03/08. WHEN HE AWOKE AT 184 HE REPORTED HE HAD TO HAVE A BM AND ATTEMPTED TO PLACE ON BEDPAN BUT HE WAS NOT SUCCESSFUL AT THAT TIME HAVING A BM. REPORTED TO ONCOMING RN HIS DIFFICULTIES WITH HAVING A BM.
--- NOTE | 2022-03-19 06:06 | NUR ---
SHIFT SUMMARY AT BEGINNING OF SHIFT PT WAS VERY AGITATED & ESCALATED UNTIL HE BECAME MORE IMPULSIVE, AGRESSIVE, ANGRY TOWARDS STAFF TRYING TO HIT & GRAB. HE WAS UNABLE TO FOLLOW ANY DIRECTIONS & NOT REDIRECTABLE EVEN AFTER SCHEDULED PO SEROQUEL & 1 MG ATIVAN PT STILL IMPULSIVE TRYING TO GET OOB W/O HELP, GAVE PT PRN IM ZYPREXA & PT STILL AGITATED, AGRESSIVE, ON ALL 4 LIMBS IN BED THREATENING MANAGER PORTABLE HE WAS GOING TO JUMP. FOUND WIRE WEAVING LOOM SETTEREFREN CULLEN ON PT & IT TOOK 3 PEOPLE TO GET PT BACK INTO BED PROPERLY, THEN MEDICATED c 10MG ROXANOL & ANOTHER 1 MG ATIVAN & PT HAS BEEN RESTING SOUNDLY SINCE. HAD A COUPLE SMALL LIQUID BM THIS SHIFT. CHANGED & REPOSITIONED PRN. HAS BEEN OUT OF RESTRAINTS SINCE MEDICATION TOOK EFFECT. ON COMFORT. CALL LIGHT & BED ALARM IN PLACE.
--- NOTE | 2022-03-19 09:29 | NUR ---
PT IS IN BED RR E/U EYES SHUT, DIFFICULT TO AROUSE WITH VERBAL OR GENTLE TOUCH STIMULI. PT APPEARS TO BE IN NO DISTRESS. HELD AM MEDICATIONS DUE TO DIFFICULTY TO AROUSE/ASPIRATION PRECAUTIONS.
--- NOTE | 2022-03-19 14:26 | NUR ---
PT AWOKE AT LUNCH TIME AND WAS CALM AND COOPERATIVE WITH EATING HIS MEAL. CLERICAL PROOFREADER ASSISTED WITH FEEDING HIM. PT ALSO GIVEN FULL DOSE OF MIRALAX. AFTER HE ATE HE HAD A LARGE SOFT BM AND WHEN WE HAD TO CHANGE HIS ATTENDS HE KEPT TRYING TO CRAWL OUT OF BED AND COULD NOT BE REDIRECTED OR CALMED. INSTEAD HE CONTINUED TO ESCALATE AND BEGAN KICKING AT STAFF AND ATTEMPTING TO HIT AND GRAB STAFF. PT DID NOT CALM DOWN SO ATIVAN, SEROQUEL AND ROXANOL GIVEN WITH NO EFFECTIVENESS. IM ZYPREXA GIVEN AND PT BEGAN CALMING DOWN AFTER 10 MINUTES. NOTIFIED AND ORDER RECEIVED FOR RESTRAINTS. WILL TAKE PT OUT SOON HE IS NO LONGER A DANGER TO SELF AND OTHERS.
--- NOTE | 2022-03-19 17:42 | NUR ---
SHIFT SUMMARY: PT A/O TO SELF, BEDREST AT THIS TIME AND ON COMFORT CARE. PT UNABLE TO BEAR WEIGHT AT THIS TIME HE IS TOO WEAK. ATTEMPTED TO GET PT UP TO USE BSC BUT HE WAS NOT EVEN ABLE TO PIVOT TRANSFER. PT SLEPT UNTIL NOON TODAY AND AWOKE FOR LUNCH. WE WERE ABLE TO WEIGH HIM WITH BED WEIGHT AND RESULT WAS DOCUMENTED. HE HAS LOST OVER 3 LBS SINCE ADMISSION. PT WAS WEIGHED AT [facility]POINT[facility] ON 10/05/[address] EVANS AND WEIGHED 164 LBS AT THAT TIME. PT HAS HAD SIGNIFICANT WEIGHT LOSS SINCE THAT TIME. HE NOW WEIGHS 137.06 LBS. PT HAS NO MEANINGFUL COMMUNICATION. MOST OF THE TIME HIS SPEECH IS INCOMPREHENSIBLE. AT TIMES HE WILL LISTEN AND AND FOLLOW COMMANDS BUT RARELY. HE IS ON THICKENED LIQUIDS HE CHOKES ON THIN LIQUIDS AND IS ASPIRATION RISK. PT ALSO HAS MECHANICAL SOFT DIET FOR SAME REASONS. PT BECOMES VERY AGGRESSIVE WITH ANY KIND OF DISCOMFORT AND IS NOT RE-DIRECTABLE. PT HAD A BM AFTER EATING HIS LUNCH TODAY AND WHEN WE ATTEMPTED TO CHANGE HIM HE BECAME SEVERELY AGITATED AND ATTEMPTED TO HIT STAFF AND CRAWL OUT OF BED. WE WERE UNABLE TO CONTROL HIS BEHAVIORS. PRN SEROQUEL, ATIVAN, TYLENOL, ROXANOL AND IM ZYPREXA GIVEN BUT HER CONTINUED TO BE AGGRESSIVE AND ATTEMPT TO GET OOB. MD NOTIFIED AND ORDER FOR SOFT WRIST RESTRAINTS OBTAINED ALONG WITH 4 SIDE RAILS. PT CURRENTLY IN SUBHASH AND PT CONTINUES TO ATTEMPT TO GET OOB, PULLING ON RESTRAINTS. HE ALSO MOVES HIS LEGS LIKE HE IS RUNNING IN BED. DR. EATON VISITED AND MADE MEDICATION CHANGES AND AWAITING VERIFICATION TO BE GIVEN.
--- NOTE | 2022-03-20 04:46 | NUR ---
SHIFT SUMMARY - PT HAS SLEPT THROUGHOUT MOST OF THE NIGHT. PT GETS AGITATED EASILY WITH ATTENDS CHANGES. PT IS COMFORT CARE. REPORT FROM DAY SHIFT RN, IS IS WANTING TO TAKE THE PT HOME ON HOSPICE POSSIBLY. CARE MANAGEMENT IS INVOLVED WITH CARE. PT WAS AGGRESSIVE AT THE BEGINNING OF THE SHIFT, WITH AN ATTENDS CHANGE, BUT WAS REDIRETABLE NOT TO HIT OR KICK STAFF. PT CONTINUES IN WRIST RESTRAINTS FOR PT SAFETY/STAFF SAFETY. WILL CONTINUE TO MONITOR PT UNTIL AM SHIFT CHANGE.
--- NOTE | 2022-03-20 10:34 | NUR ---
PT COMFORTABLY RESTING IN BED
--- NOTE | 2022-03-20 18:32 | NUR ---
Pt remains in restraints at times; he also continues to need IM Zyprexa occasionally along with scheduled seroquel. He remains calm for several hours, but will wake up and begin swinging at staff for attempting anything: Repositioning, feeding him, change a brief, etc. Until behaviors are better controlled pt will not be sent home with hospice or otherwise. Dr. Sanchez continues to consult. Pt's is aware there won't be a discharge plan until pt is either placed, or can return home without needing restraints.
--- NOTE | 2022-03-21 07:03 | NUR ---
PT OVERNIGHT WITH NO NEW COMPLAINS OR CHANGES. REMAINS ON RESTRAINTS. INTERMITTENTLY NOTED TO BE PULLING AT RESTRAINTS AND YELLING. PT REQUIRES A LOT OF CUES WHEN CHANING HIM AND AT TIMES RESIST STAFF FROM HELPING HIM. MEPILEX APPLIED TO WRIST FOR PROTECTION DUE TO PT PULLING AT RESTRAINTS.
--- NOTE | 2022-03-21 10:45 | NUR ---
PT @ BEDSIDE REQUESTING TO SPEAK W/ . PLAN TO CONTACT PT RESTING COMFORTABLY IN BED @ THIS TIME.
--- NOTE | 2022-03-22 04:10 | NUR ---
PT REMAINS ON LOCKED RESTRAINTS. PT VERY AGITATED AND AGGRESSIVE DURING ATTENDS/BED CHANGE. ADDITIONAL STAFF NEEDED DUE TO PT STRONGLY RESISTING FOR 2 STAFF TO ASSIST IN CHANGING HIM. AFTERWARDS PT DOZING ON AND OFF HOWEVER NOTED TO BE FREQUENTLY MUMBLING. AT START OF SHIFT PT HAD CLEAR SPEECH HOWEVER SHIFT PROGRESSED HE RETURNED TO USUAL INCOHERENT/INCOMPREHENSIBLE SPEECH. PT NOTED TO BE RUBBING HIS FEET AGAINTS MATTRESS, HEEL BOOTS APPLIED HOWEVER PT REMOVED SHORTLY. HEEL FOAM APPLIED TO HELP PROTECT HEELS. PER REPORT PT WITH MINIMAL APPETITE DURING THE DAY AND WHEN STAFF ATTEMPTED TO ENCOURAGE PT FIRMLY REFUSED AND WOULD BECOME AGITATED.
--- NOTE | 2022-03-22 14:35 | NUR ---
PATIENT BEGAN BECOMING RESTLESS IN BED. MOVING HIS FEET LIKE HE IS RUNNING IN BED. COULD NOT REDIRECT OR CALM PATIENT. PATIENT BECAME MORE AGITATED ATTEMPTED TO GET OUT OF BED MULTIPLE TIMES, KICKING FEET OVER SIDE RAILS AND SLIDING TO THE FOOT OF THE BED. PATIENT GIVEN HADOL, ATIVAN, AND BENADRYL IM. AFTER INJECTION PATIENT LESS AGITATED BUT STILL MOVING HIS FEET LIKE HE IS RUNNING IN BED.
--- NOTE | 2022-03-22 18:14 | NUR ---
SHIFT SUMMARY PATIENT ON COMFORT CARE. A&O TO SELF. PATIENT BECOMES EASILY AGITATED WHEN CHANGING ATTENDS. PATIENT ATTEMPTS TO GET OUT OF BED. RESTRAINTS IN PLACE. PATIENT WILL CONTINUALLY MOVE HIS FEET LIKE HES RUNNING BED. WILL CONTINUE TO MONITOR.
--- NOTE | 2022-03-23 04:35 | NUR ---
SHIFT SUMMARY PATIENT ON COMFORT CARE. RESTRAINTS PER ORDER FOR AGITATION AND AGRESSION. TRYS TO GET OOB. AXO TO SELF WITH NO IV ACCESS. MUMBLES WITH INCOMPREHENSIBLE SPEECH. MEPLIEX HEEL PROTECTORS IN PLACE. NO S/SX OF PAIN, SOB, OR N/V. BED IN LOWEST POSITION AND ALARM ACTIVATED. WILL CONTINUE TO MONITOR UNTIL DAY SHIFT NURSE ASSUMES CARE.
--- NOTE | 2022-03-23 12:17 | NUR ---
PATIENT ON COMFORT CARE. MEDICATED THIS AM FOR PAIN. RESTRAINTS REMOVED THIS AM AND PATIENT HAS BEEN QUIETLY SLEEPING. WILL CONTINUE TO MONITOR.
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
--- NOTE | 2022-03-23 18:41 | NUR ---
SHIFT SUMMARY PATIENT ON COMFORT CARE. RESTRAINTS D/C'D THIS AM. PATIENT MEDICATED FOR PAIN X2. PATIENT SLEPT COMFORTABLY T/O SHIFT. TOLERATED BED BATH AND ATTENDS CHANGES. WILL CONTINUE TO MONITOR.
--- NOTE | 2022-03-24 04:26 | NUR ---
SHIFT SUMMARY PATIENT ON COMFORT CARE AND OUT OF RESTRAINTS. INCREASED AGITATION START OF SHIFT AND TRYING TO CLIMB OUT OF BED, ON CAMERA. IM HALDOL, ATIVAN, AND BENADRYL GIVEN PER EMAR. GOOD EFFECT WITH LESS AGITATION OBSERVED AND ABLE TO REST. ALERT TO SELF WITH INCOMPREHENSIBLE SPEECH AND BEDREST. NPO. NO S/SX OF SOB AND N/V. CALL LIGHT IN REACH. BED IN LOWEST POSITION AND ALARM ACTIVATED. WILL CONTINUE TO MONITOR UNTIL DAY SHIFT NURSE ASSUMES CARE.
--- NOTE | 2022-03-24 14:24 | NUR ---
PATIENT ON COMFORT CARE. BECOME RESTLESS AFTER RESPOSITIONING. MEDICATED PER MAR. PATIENT SOUNDING GURGLY, ATTEMPTED TO SUCTION BUT NOTHING CAME OUT.GAVE ATROPINE DROPS FOR EXCESS SECRETIONS. AT BEDSIDE. PATIENT BECAME A LITTLE RESTLESS BUT CALMED AND BACK TO SLEEP.
--- NOTE | 2022-03-24 16:55 | NUR ---
Multiple visits to patient. pt slowly progressing non verbal, more clammy some period of clencing amd muscle tightness. No seizure activity noted. A little more active when was there. no grabbing but responing to her voice and touch and wanting to hold her hand. some mottling noted. Therputic time with . She is very tearful. Will continue to monitor.
--- NOTE | 2022-03-25 04:19 | NUR ---
SHIFT SUMMARY PATIENT ON COMFORT CARE. BEDREST, NPO, WITH INCOMPREHENSIBLE SPEECH. ROAXANOL 10 MG GIVEN WITH PO ATIVAN 2 MG FOR AGITATION AND PAIN. NO IV ACCESS. ATROPINE DROPS GIVEN X ONE FOR SECRETIONS. CALL LIGHT IN REACH. BED IN LOWEST POSITION. WILL CONTINUE TO MONITOR UNTIL DAY SHIFT NURSE ASSUMES CARE.
--- NOTE | 2022-03-25 11:11 | NUR ---
Met with pt's and sister this morning at the bedside. Pt is possibly transitioning; he is not opening his eyes, not eating or drinking, hoding hands with , speaking softly in disorganized speech. He is no longer in restraints, and is unable to attempt sitting upright or climbing out of bed due to increased weakness. No agression noted over past several days. Pt's states she would like to take her home on hospice as soon as possible, as he is likely beginning transition. Dr. Marie has been consulted, and [facility] is again looking at the pt for possible admission.
--- NOTE | 2022-03-25 16:41 | NUR ---
PT HAS BEEN UNRESPONSIVE EXCEPT FOR GROANING WHEN UNCOMFORTABLE. PT IS BEING REPOSTIONED EVERY TWO HOURS AND KEEP COMFORTABLE PER EMAR. FAMILY WAS AT BEDSIDE EARLIER AND IS AIMING TO GET PT HOME ON HOSPICE TOMORROW. NO DISTRESS NOTED WILL CONITUE TO MONITOR.
--- NOTE | 2022-03-26 05:33 | NUR ---
SHIFT SUMMARY: PT REMAINS SOMNOLENT THROUGHOUT THE NIGHT. OCCASSIONALLY MOANING/GROANING AND SLIGHTLY OPENING EYES WITH MOVEMENT AND INCREASED PAIN. PRN PAIN MEDICATIONS ADMINISTERED, APPEARS TO PROVIDE GOOD PAIN RELIEF. INCREASED SECREATIONS OBSERVED DUE TO INCREASED GURGLING SOUNDS WITH BREATHING. PO ORAL SUCTIONING PROVIDED TO ASSIST IN RELIEF OF SECRETIONS IN ADDITION TO PRN SCOPALAMINE PATCH APPLICATION. BED ALARM REMAINS ACTIVATED, BED IN LOW POSITION, CALL ROMANO AND BELONGINGS IN REACH.
[2022-03-26] MEDS ORDERED: ATROPINE SULFATE2 M1 SL (12:54)
[2022-03-26] MEDS ORDERED: HALDOL IM (12:55)
[2022-03-26] MEDS ORDERED: TRANSDERM-SCOP1 EA10 TD (12:56)
[2022-03-26] MEDS ORDERED: MORP20L SL (12:56)
--- NOTE | 2022-03-26 14:11 | NUR ---
DC SUMMARY PT AxOx0. PT ON COMFORT CARE AND NON RESPONSIVE TO VERBAL STIMULI. PT DISCHARGING HOME TODAY ON HOSPICE. SPOKE WITH PATIENT'S , EDMAR, THIS AM REGARDING PLANS FOR DISCHARGE. EDMAR INFORMED OF PLANS FOR TRANSPORT AT 1400 BY [facility]. PT'S BELONGINGS AND DC PAPERWORK, INCLUDING HARD SCRIPT RX'S SENT WITH TRANSPORTERS. PT WAS GIVEN A BED BATH AND ATTENDS CHANGED NEEDED. PT ALSO HAD ORAL SUCTIONING PRN. PT APPEARED COMFORTABLE OTHERWISE. NO PAIN MEDICATIONS ADMINISTERED ON THIS (DAY SHIFT) PT SAFELY TRANSPORTED VIA GURNEY OUT OF HOSPITAL.
== END 2022-03-26 14:42 | disposition hospice, home (50) | DRG 57 ==
LOC: ER 18:17 → EOR 18:18 → MEDS 18:18 → EOR 18:18 → MEDS 02-26 17:52
PROVIDERS: Emergency Medicine; Family Medicine; ADMIT Internal Medicine
DX: G31.83 Neurocognitive disorder with Lewy bodies (principal); F02.81 Dementia in other diseases classified elsewhere, unspecified severity, with behavioral disturbance; N39.0 Urinary tract infection, site not specified; E44.0 Moderate protein-calorie malnutrition; Z51.5 Encounter for palliative care; Z66 Do not resuscitate; R45.1 Restlessness and agitation; E11.9 Type 2 diabetes mellitus without complications; I25.10 Atherosclerotic heart disease of native coronary artery without angina pectoris; I10 Essential (primary) hypertension; K21.9 Gastro-esophageal reflux disease without esophagitis; E78.5 Hyperlipidemia, unspecified; B96.1 Klebsiella pneumoniae [K. pneumoniae] as the cause of diseases classified elsewhere; Z68.25 Body mass index [BMI] 25.0-25.9, adult; Z88.8 Allergy status to other drugs, medicaments and biological substances; Z79.82 Long term (current) use of aspirin; Z79.899 Other long term (current) drug therapy
CPT/HCPCS: 0241U; 36415; 70450; 70551; 71045; 80053; 80069; 80076; 81001; 82803; 82947; 83036; 83735; 84145; 84443; 84484; 85025; 87077; 87086; 87186; 93005; 93010; 94760; 96361; 96372; 96374; 96376; 97110; 97162; 99285-25; A9270; G0378; G0480; J0696; J1200; J1630; J1644; J1650; J2060